=== PATIENT | male | born 1935 | race African-American/Black ===

== ENCOUNTER 2020-02-11 09:52 | Outpatient (REF) | payer MEDICARE, SELFPAY ==
[2020-02-11 12:24] LABS: Alanine Aminotransferase 16 U/L (0-40); Albumin Level 4.3 g/dL (3.5-5.0); Alkaline Phosphatase 74 U/L (39-117); Anion Gap 13 (12-20); Aspartate Amino Transferase 32 U/L (5-37); Bilirubin Total 0.7 mg/dL (0.0-1.0); Blood Urea Nitrogen 10 mg/dL (9-16); Carbon Dioxide 29 mmol/L (22-29); Chloride 101 mmol/L (96-108); Cholesterol 160 mg/dL; Estimated Glomerular Filt Rate > 60; Glucose Fasting 87 mg/dL (60-99); HDL Cholesterol 65 mg/dL; LDL Cholesterol Calculated 78 mg/dl; Potassium 3.9 mmol/l (3.3-5.1); Sodium 139 mmol/L (135-145); Total Protein 7.5 g/dL (6.5-8.0); Triglycerides 86 mg/dL
[2020-02-11 12:49] LABS: PSA,Total (Free>4and<10) 0.26 ng/mL (0.00-4.00); TSH reflex Free T4 1.98 mIU/mL (0.32-4.0); Vitamin D 25-OH Total 40.7 ng/mL (>30)
[2020-02-11 12:51] LABS: Creatinine Urine 22.84 mg/dL; Microalbumin Urine < 5.0 mg/L
== END 2020-02-11 09:53 | disposition home or self-care (01) ==
LOC: HO.WFDLDS 09:52
PROVIDERS: Visit Provider Family Medicine
DX: Z12.5 Encounter for screening for malignant neoplasm of prostate (principal); R03.0 Elevated blood-pressure reading, without diagnosis of hypertension; Z00.00 Encounter for general adult medical examination without abnormal findings; E55.9 Vitamin D deficiency, unspecified
CPT/HCPCS: 80053; 80061; 82043; 82306; 84153; 84443

== ENCOUNTER 2020-04-07 12:06 | Outpatient (REF) | payer MEDICARE, SELFPAY ==
--- NOTE | 2020-04-07 12:14 | XR_ITS ---
EXAMINATION: XR ANKLE, LEFT CLINICAL INFORMATION: Left ankle pain. COMPARISON: None TECHNIQUE: AP, lateral, and mortise views of the left ankle. FINDINGS: There is no evidence of acute fracture or dislocation of the left ankle. Ankle mortise intact. There is some calcification of the intraosseous membrane likely related to previous heel trauma. There is noted to be a compression fracture of the navicular with spurring dorsum of the navicular and 1st cuneiform. There is some sclerosis involving the navicular and this is likely a chronic injury. XR/XR ankle LT 2V IMPRESSION: No significant abnormality of the left ankle. Probable old compression fracture of the navicula.
== END 2020-04-07 12:07 | disposition home or self-care (01) ==
LOC: HO.XRAY 12:06
PROVIDERS: PCP Family Medicine; Visit Provider Hospitalist
DX: M25.572 Pain in left ankle and joints of left foot (principal)
CPT/HCPCS: 73600

== ENCOUNTER 2020-09-28 12:45 | Outpatient (REF) | payer MEDICARE, SELFPAY ==
[2020-09-28 13:23] LABS: MANUAL DIFF FLAG NO
[2020-09-28 13:27] LABS: Basophils Percent Auto 0.8 % (0-2); Eosinophils Absolute Auto 0.1 X10*3/uL (0.0-0.4); Eosinophils Percent Auto 2.9 % (0-4); Hematocrit 40.3 % (42-52); Hemoglobin 12.9 g/dl (14.0-18.0); Imm Gran Abs Auto 0.01 X10*3/uL (0.00-0.03); Imm Gran Pct Auto 0.2 % (0.0-0.4); Lymphocytes Absolute Auto 2.6 X10*3/uL (1.2-4.9); Mean Corpuscular Hemoglobin 27.1 pg (27.0-33.0); Mean Corpuscular Volume 84.7 fL (80-98); Mean Platelet Volume 9.2 fL (9.4-12.4); Monocytes Absolute Auto 0.7 X10*3/uL (0.1-1.2); Monocytes Percent Auto 13.6 % (2-11); Neutrophils Absolute Auto 1.4 X10*3/uL (2.0-8.3); Neutrophils Percent Auto 28.5 % (45-73); Platelet Count 218 X10*3/uL (160-400); Red Blood Count 4.76 X10*6/uL (4.60-5.80); Red Cell Distribution Width 13.3 % (11.0-16.0); White Blood Count 4.9 X10*3/uL (4.8-10.8)
[2020-09-28 13:57] LABS: Alanine Aminotransferase 11 U/L (0-40); Albumin Level 4.3 g/dL (3.5-5.0); Alkaline Phosphatase 76 U/L (39-117); Anion Gap 13 (12-20); Aspartate Amino Transferase 24 U/L (5-37); Bilirubin Total 0.3 mg/dL (0.0-1.0); Blood Urea Nitrogen 18 mg/dL (9-16); Calcium 9.5 mg/dL (8.4-10.2); Carbon Dioxide 30 mmol/L (22-29); Chloride 102 mmol/L (96-108); Estimated Glomerular Filt Rate > 60; Glucose Random 95 mg/dL (60-115); Potassium 4.2 mmol/L (3.3-5.1); Rheumatoid Factor 136.7 IU/mL (<15.0); Sodium 141 mmol/L (135-145); Total Protein 7.9 g/dL (6.5-8.0)
[2020-09-28 14:10] LABS: Erythrocyte Sedimentation Rate 19 MM/HR (0-15)
[2020-09-29 22:37] LABS: CRP High Sensitivity 6.6 mg/L
[2020-10-04 12:42] LABS: Cyclic Citrullinated Peptide <16 UNITS
== END 2020-09-28 12:46 | disposition home or self-care (01) ==
LOC: HO.WFDLDS 12:45
PROVIDERS: Visit Provider Family Medicine
DX: Z00.00 Encounter for general adult medical examination without abnormal findings (principal); M79.643 Pain in unspecified hand
CPT/HCPCS: 36415; 80053; 85025; 85652; 86141; 86200; 86431

== ENCOUNTER 2020-10-04 13:54 | Outpatient (REF) | payer MEDICARE, SELFPAY ==
--- NOTE | ~2020-10-04 | XR_ITS ---
EXAMINATION: XR FOOT, RIGHT XR FOOT, LEFT CLINICAL INFORMATION: Abnormal immunologic findings. COMPARISON: Left ankle radiographs dated 04/07/2020. TECHNIQUE: AP, oblique, and lateral views of the right and left foot. FINDINGS: RIGHT FOOT: No acute fracture or dislocation. Mild degenerative spurring at the dorsal cuneonavicular joints. Mild joint space narrowing with small marginal osteophytes at the 1st metatarsophalangeal joint. No osseous erosion. No abnormal soft tissue calcification. LEFT FOOT: Joint space narrowing with bony remodeling and degenerative spurring at the dorsal cuneonavicular joints. Findings are similar when compared to the prior radiographs. Joint space narrowing or marginal osteophytes at the 1st metatarsophalangeal joint. No fracture or dislocation. No abnormal soft tissue calcification. XR/XR foot RT 2V IMPRESSION: Right foot: Mild osteoarthritis at the dorsal cuneonavicular joints. Mild osteoarthritis at the 1st metatarsophalangeal joint. Left foot: Severe osteoarthritis at the dorsal cuneonavicular joints, similar when compared to the prior ankle radiographs. Mild 1st metatarsophalangeal joint osteoarthritis.
--- NOTE | ~2020-10-04 | XR_ITS ---
EXAMINATION: XR HAND/WRIST, RIGHT XR HAND/WRIST, LEFT CLINICAL INFORMATION: Abnormal immunologic findings. COMPARISON: None TECHNIQUE: AP, oblique, and lateral views of the right hand and wrist as well as the left hand and wrist. FINDINGS: RIGHT HAND AND WRIST: No acute fracture or dislocation. Joint space narrowing with marginal osteophytes at the triscaphe and 1st carpometacarpal joints. Normal carpal alignment. No osseous erosion. No abnormal soft tissue calcification. LEFT HAND AND WRIST: No acute fracture or dislocation. Normal carpal alignment. Mild joint space narrowing at the radiocarpal joint. No osseous erosion. No abnormal soft tissue calcification. XR/XR hand wrist LT IMPRESSION: Right hand and wrist: Mild degenerative arthritis at the triscaphe and 1st carpometacarpal joints. Left hand and wrist: Mild degenerative arthritis at the radiocarpal joint.
--- NOTE | ~2020-10-04 | XR_ITS ---
EXAMINATION: XR HAND/WRIST, RIGHT XR HAND/WRIST, LEFT CLINICAL INFORMATION: Abnormal immunologic findings. COMPARISON: None TECHNIQUE: AP, oblique, and lateral views of the right hand and wrist as well as the left hand and wrist. FINDINGS: RIGHT HAND AND WRIST: No acute fracture or dislocation. Joint space narrowing with marginal osteophytes at the triscaphe and 1st carpometacarpal joints. Normal carpal alignment. No osseous erosion. No abnormal soft tissue calcification. LEFT HAND AND WRIST: No acute fracture or dislocation. Normal carpal alignment. Mild joint space narrowing at the radiocarpal joint. No osseous erosion. No abnormal soft tissue calcification. XR/XR hand wrist RT IMPRESSION: Right hand and wrist: Mild degenerative arthritis at the triscaphe and 1st carpometacarpal joints. Left hand and wrist: Mild degenerative arthritis at the radiocarpal joint.
--- NOTE | ~2020-10-04 | XR_ITS ---
EXAMINATION: XR FOOT, RIGHT XR FOOT, LEFT CLINICAL INFORMATION: Abnormal immunologic findings. COMPARISON: Left ankle radiographs dated 04/07/2020. TECHNIQUE: AP, oblique, and lateral views of the right and left foot. FINDINGS: RIGHT FOOT: No acute fracture or dislocation. Mild degenerative spurring at the dorsal cuneonavicular joints. Mild joint space narrowing with small marginal osteophytes at the 1st metatarsophalangeal joint. No osseous erosion. No abnormal soft tissue calcification. LEFT FOOT: Joint space narrowing with bony remodeling and degenerative spurring at the dorsal cuneonavicular joints. Findings are similar when compared to the prior radiographs. Joint space narrowing or marginal osteophytes at the 1st metatarsophalangeal joint. No fracture or dislocation. No abnormal soft tissue calcification. XR/XR foot LT 2V IMPRESSION: Right foot: Mild osteoarthritis at the dorsal cuneonavicular joints. Mild osteoarthritis at the 1st metatarsophalangeal joint. Left foot: Severe osteoarthritis at the dorsal cuneonavicular joints, similar when compared to the prior ankle radiographs. Mild 1st metatarsophalangeal joint osteoarthritis.
--- NOTE | ~2020-10-04 | XR_ITS ---
EXAMINATION: XR CHEST CLINICAL INFORMATION: Abnormal immunological findings. COMPARISON: None TECHNIQUE: 2 views of the chest were obtained. FINDINGS: The lungs are well-expanded and clear acute process. Heart size and pulmonary vascularity is normal. No gross bony abnormality seen. XR/XR chest 2V IMPRESSION: Unremarkable chest exam.
[2020-10-05 04:49] LABS: HBsAGNum1 0.13 S/CO (0.00-0.99); Hepatitis B Surface Antigen Negative (Negative); ~Hepatitis C Antibody Nonreactive (Nonreactive)
[2020-10-05 05:31] LABS: HBS Num1 > 1000.00 mIU/mL (0-7.99); Hepatitis A Antibody IgM 0.56 Index (0-0.79); ~Hepatitis A Antibody IgM Nonreactive (Nonreactive); ~Hepatitis B Surface Antibody REACTIVE (Nonreactive)
[2020-10-05 06:18] LABS: HBc Num1 3.18 S/CO (0.00-0.79); HBc Num2 3.32 S/CO; HBc Num3 3.18 S/CO; Hepatitis B Core Antibody Reactive (Nonreactive)
[2020-10-07 23:56] LABS: TS Negative Control Passed; TS Panel A 1; TS Panel B 0; TS Positive Control Passed; TSpotTB Negative (SeeBelow)
== END 2020-10-04 13:55 | disposition home or self-care (01) ==
LOC: HO.LAB 13:54
PROVIDERS: PCP Family Medicine; Visit Provider Student in an Organized Health Care Education/Training Program
DX: R76.8 Other specified abnormal immunological findings in serum (principal)
CPT/HCPCS: 36415; 71046; 73110; 73130; 73620; 86481; 86704; 86706; 86709; 86803; 87340; 99202

== ENCOUNTER → 2020-10-26 10:53 | Outpatient (BNVA) | payer MEDICARE, SELFPAY | PROVIDERS: PCP Family Medicine; Visit Provider Student in an Organized Health Care Education/Training Program | DX: M06.9 Rheumatoid arthritis, unspecified (principal) | CPT/HCPCS: 99212 ==

== ENCOUNTER → 2020-11-23 09:56 | Outpatient (BNVA) | payer MEDICARE, SELFPAY | PROVIDERS: PCP Family Medicine; Visit Provider Student in an Organized Health Care Education/Training Program | CPT/HCPCS: Q3014 ==

== ENCOUNTER → 2021-07-24 13:43 | Outpatient (BNVA) | payer MEDICARE, SELFPAY | PROVIDERS: PCP Family Medicine; Visit Provider Internal Medicine Rheumatology | DX: M05.9 Rheumatoid arthritis with rheumatoid factor, unspecified (principal); M65.9 Synovitis and tenosynovitis, unspecified; M19.041 Primary osteoarthritis, right hand; M19.042 Primary osteoarthritis, left hand; Z79.1 Long term (current) use of non-steroidal anti-inflammatories (NSAID); Z79.899 Other long term (current) drug therapy | CPT/HCPCS: 99212 ==

== ENCOUNTER 2021-09-22 10:21 | Outpatient (REF) | payer MEDICARE, SELFPAY ==
--- NOTE | ~2021-09-22 | XR_ITS ---
EXAMINATION: XR ABDOMEN KUB CLINICAL INDICATION: R10.9 - Unspecified abdominal pain COMPARISON: None TECHNIQUE: AP x2 views of the abdomen. FINDINGS: There is moderate stool in the colon. No gaseous dilatation of bowel or abnormal collections of gas. Lung bases are clear. There are no visible urinary tract calculi. There are multilevel degenerative changes lumbar spine. XR/XR KUB IMPRESSION: -Moderate stool in colon. No obstruction. No gaseous dilatation of bowel. -Lung bases clear. -No visible urinary tract calculi.
[2021-09-22 11:37] LABS: Hematocrit 36.9 % (42.0-52.0); Mean Corpuscular HGB Conc 32.5 g/dl (31.0-36.0); Mean Corpuscular Hemoglobin 27.1 pg (27.0-33.0); Mean Corpuscular Volume 83.3 fL (80.0-98.0); Mean Platelet Volume 9.6 fL (9.4-12.4); Platelet Count 223 X10*3/uL (160-400); Red Blood Count 4.43 X10*6/uL (4.60-5.80); Red Cell Distribution Width 13.4 % (11.0-16.0); White Blood Count 6.3 X10*3/uL (4.8-10.8)
[2021-09-22 11:59] LABS: Alanine Aminotransferase 13 U/L (0-40); Albumin Level 4.1 g/dL (3.5-5.0); Alkaline Phosphatase 78 U/L (39-117); Anion Gap 12 (12-20); Aspartate Amino Transferase 29 U/L (5-37); Bilirubin Direct 0.2 mg/dL (0.0-0.5); Bilirubin Total 0.5 mg/dL (0.0-1.0); Blood Urea Nitrogen 18 mg/dL (9-16); Calcium 9.4 mg/dL (8.4-10.2); Carbon Dioxide 28 mmol/L (22-29); Chloride 104 mmol/L (96-108); Cholesterol 125 mg/dL; Estimated Glomerular Filt Rate > 60; Glucose Random 99 mg/dL (60-115); HDL Cholesterol 51 mg/dL; LDL Cholesterol Calculated 58 mg/dl; Potassium 3.9 mmol/L (3.3-5.1); Sodium 140 mmol/L (135-145); Total Protein 7.5 g/dL (6.5-8.0); Triglycerides 84 mg/dL
[2021-09-22 12:24] LABS: Erythrocyte Sedimentation Rate 27 MM/HR (0-15)
== END 2021-09-22 10:22 | disposition home or self-care (01) ==
LOC: HO.XRAY 10:21
PROVIDERS: PCP Family Medicine; Visit Provider Internal Medicine
DX: R10.9 Unspecified abdominal pain (principal)
CPT/HCPCS: 36415; 74018; 80048; 80061; 80076; 85027; 85652

== ENCOUNTER 2022-06-30 09:16 | Outpatient (REF) | payer MEDICARE, SELFPAY ==
[2022-06-30 11:01] LABS: MANUAL DIFF FLAG NO
[2022-06-30 11:05] LABS: Basophils Percent Auto 0.7 % (0-2); Eosinophils Absolute Auto 0.1 X10*3/uL (0.0-0.4); Hematocrit 37.8 % (42.0-52.0); Hemoglobin 12.2 g/dl (14.0-18.0); Imm Gran Abs Auto 0.01 X10*3/uL (0.00-0.03); Imm Gran Pct Auto 0.2 % (0.0-0.4); Lymphocytes Percent Auto 36.1 % (20-40); Mean Corpuscular HGB Conc 32.3 g/dl (31.0-36.0); Mean Corpuscular Hemoglobin 27.5 pg (27.0-33.0); Mean Corpuscular Volume 85.1 fL (80.0-98.0); Mean Platelet Volume 9.5 fL (9.4-12.4); Monocytes Absolute Auto 0.8 X10*3/uL (0.1-1.2); Monocytes Percent Auto 13.8 % (2-11); Neutrophils Absolute Auto 2.6 x10*3/uL (2.0-8.3); Neutrophils Percent Auto 47.2 % (45-73); Platelet Count 229 X10*3/uL (160-400); Red Blood Count 4.44 X10*6/uL (4.60-5.80); Red Cell Distribution Width 13.8 % (11.0-16.0); White Blood Count 5.6 X10*3/uL (4.8-10.8)
[2022-06-30 11:09] LABS: Appearance Urine Clear; Color Urine Yellow; Glucose Urine UA Negative (Negative); Leukocyte Esterase Urine Negative (Negative); Nitrite Urine Negative (Negative); Specific Gravity - Urine 1.025 (1.005-1.025); Urine Blood Negative (Negative); Urine Ketones Negative (Negative); Urine Protein Negative (Neg-Trace)
[2022-06-30 12:23] LABS: Creatinine Urine 216.35 mg/dL
[2022-06-30 12:38] LABS: Alanine Aminotransferase 20 U/L (0-40); Albumin Level 4.3 g/dL (3.5-5.0); Alkaline Phosphatase 73 U/L (39-117); Anion Gap 11 (12-20); Aspartate Amino Transferase 71 U/L (5-37); Bilirubin Total 0.6 mg/dL (0.0-1.0); Blood Urea Nitrogen 14 mg/dL (9-16); Calcium 9.4 mg/dL (8.4-10.2); Carbon Dioxide 28 mmol/L (22-29); Chloride 107 mmol/L (96-108); Cholesterol 127 mg/dL; Estimated Glomerular Filt Rate > 60; Glucose Fasting 128 mg/dL (60-99); HDL Cholesterol 64 mg/dL; LDL Cholesterol Calculated 58 mg/dl; Potassium 4.2 mmol/L (3.3-5.1); Sodium 142 mmol/L (135-145); Total Protein 7.4 g/dL (6.5-8.0); Triglycerides 28 mg/dL
[2022-06-30 12:44] LABS: Prostate Specific Antigen Scr 0.33 ng/mL (<0.05-4.0)
== END 2022-06-30 09:17 | disposition home or self-care (01) ==
LOC: HO.HMGCLDS 09:16
PROVIDERS: PCP Family Medicine; Visit Provider Family Medicine
DX: Z00.00 Encounter for general adult medical examination without abnormal findings (principal); Z12.5 Encounter for screening for malignant neoplasm of prostate; I10 Essential (primary) hypertension; R29.898 Other symptoms and signs involving the musculoskeletal system
CPT/HCPCS: 36415; 80053; 80061; 81003; 82043; 84153; 84443; 85025

== ENCOUNTER 2022-07-02 12:18 | Outpatient (REF) | payer MEDICARE, SELFPAY ==
[2022-07-02 14:01] LABS: Immature Retic Fraction 9.5 % (2.3-13.4); Retic HGB Equivalent 32.3 pg (30.0-35.0); Reticulocyte Percent 1.4 % (0.5-1.8); Reticulocytes Absolute 0.065 X10*6/uL (0.026-0.095)
[2022-07-02 14:14] LABS: Iron 53 mcg/dL (45-160); Percent Iron Saturation 19 % (15-50); Total Iron Binding Capacity 276 mcg/dL (228-428); Unsaturated Iron Binding 223 ug/dL
[2022-07-02 14:19] LABS: Estimated Average Glucose 120 mg/dL; Hemoglobin A1c % 5.8 %
[2022-07-02 14:53] LABS: Vitamin B12 > 2000 pg/mL (200-900)
== END 2022-07-02 12:19 | disposition home or self-care (01) ==
LOC: HO.WFDLDS 12:18
PROVIDERS: Visit Provider Nurse Practitioner Family
DX: R41.0 Disorientation, unspecified (principal); D64.9 Anemia, unspecified; R73.01 Impaired fasting glucose
CPT/HCPCS: 36415; 82607; 82746; 83036; 83540; 85045

== ENCOUNTER 2022-07-10 12:02 | Outpatient (REF) | payer MEDICARE, SELFPAY | END 2022-07-10 12:03 | disposition home or self-care (01) | LOC: HO.LAB 12:02 | PROVIDERS: Visit Provider Family Medicine | DX: Z13.89 Encounter for screening for other disorder (principal) ==

== ENCOUNTER 2022-07-10 12:04 | Outpatient (REF) | payer MEDICARE, SELFPAY ==
[2022-07-10 14:06] LABS: MANUAL DIFF FLAG NO
[2022-07-10 14:11] LABS: Basophils Absolute Auto 0.1 X10*3/uL (0.0-0.2); Basophils Percent Auto 0.9 % (0-2); Eosinophils Absolute Auto 0.1 X10*3/uL (0.0-0.4); Eosinophils Percent Auto 1.7 % (0-4); Hematocrit 38.9 % (42.0-52.0); Hemoglobin 12.6 g/dl (14.0-18.0); Imm Gran Abs Auto 0.02 X10*3/uL (0.00-0.03); Imm Gran Pct Auto 0.3 % (0.0-0.4); Lymphocytes Absolute Auto 1.9 X10*3/uL (1.2-4.9); Lymphocytes Percent Auto 29.1 % (20-40); Mean Corpuscular HGB Conc 32.4 g/dl (31.0-36.0); Mean Corpuscular Hemoglobin 27.5 pg (27.0-33.0); Mean Corpuscular Volume 84.9 fL (80.0-98.0); Mean Platelet Volume 9.5 fL (9.4-12.4); Monocytes Absolute Auto 1.2 X10*3/uL (0.1-1.2); Monocytes Percent Auto 17.6 % (2-11); Neutrophils Absolute Auto 3.4 x10*3/uL (2.0-8.3); Neutrophils Percent Auto 50.4 % (45-73); Platelet Count 264 X10*3/uL (160-400); Red Blood Count 4.58 X10*6/uL (4.60-5.80); Red Cell Distribution Width 13.4 % (11.0-16.0); White Blood Count 6.7 X10*3/uL (4.8-10.8)
[2022-07-10 14:42] LABS: Appearance Urine Clear; Color Urine Yellow; Glucose Urine UA Negative (Negative); Leukocyte Esterase Urine Negative (Negative); Nitrite Urine Negative (Negative); Specific Gravity - Urine 1.025 (1.005-1.025); UMIC TRIGGER UA YES; Urine Blood Negative (Negative); Urine Ketones Negative (Negative); Urine Protein 30 (1+) mg/dL (Neg-Trace)
[2022-07-10 14:53] LABS: Bacteria Urine None Seen (None Seen); Granular Casts Urine Present; RBC Urine 0-2 /HPF (0-2); WBC Urine 0-5 /HPF (0-5)
[2022-07-10 15:01] LABS: Alanine Aminotransferase 56 U/L (0-40); Albumin Level 4.5 g/dL (3.5-5.0); Alkaline Phosphatase 75 U/L (39-117); Anion Gap 14 (12-20); Aspartate Amino Transferase 85 U/L (5-37); Bilirubin Total 0.6 mg/dL (0.0-1.0); Blood Urea Nitrogen 21 mg/dL (9-16); Calcium 9.8 mg/dL (8.4-10.2); Carbon Dioxide 30 mmol/L (22-29); Chloride 100 mmol/L (96-108); Estimated Glomerular Filt Rate > 60; Glucose Random 86 mg/dL (60-115); Sodium 140 mmol/L (135-145); Total Protein 7.9 g/dL (6.5-8.0)
[2022-07-10 15:29] LABS: Folate 16.2 ng/mL (> or = 4.0); TSH reflex Free T4 1.95 uIU/mL (0.32-4.0); Vitamin B12 > 2000 pg/mL (200-900)
[2022-07-11 04:04] LABS: Syphilis Screen Nonreactive (Nonreactive)
== END 2022-07-10 12:05 | disposition home or self-care (01) ==
LOC: HO.WFDLDS 12:04
PROVIDERS: Visit Provider Family Medicine
DX: Z00.00 Encounter for general adult medical examination without abnormal findings (principal); R41.82 Altered mental status, unspecified; E53.8 Deficiency of other specified B group vitamins; Z20.2 Contact with and (suspected) exposure to infections with a predominantly sexual mode of transmission
CPT/HCPCS: 36415; 80053; 81001; 82607; 82746; 84443; 85025; 86780

== ENCOUNTER 2022-09-13 08:14 | Outpatient (REF) | payer MEDICARE, SELFPAY ==
[2022-09-13 12:01] LABS: Alanine Aminotransferase 13 U/L (0-40); Albumin Level 3.9 g/dL (3.5-5.0); Alkaline Phosphatase 71 U/L (39-117); Anion Gap 10 (12-20); Aspartate Amino Transferase 27 U/L (5-37); Bilirubin Total 0.5 mg/dL (0.0-1.0); Blood Urea Nitrogen 17 mg/dL (9-16); Carbon Dioxide 29 mmol/L (22-29); Chloride 106 mmol/L (96-108); Estimated Glomerular Filt Rate > 60; Glucose Random 112 mg/dL (60-115); Sodium 141 mmol/L (135-145); Total Protein 7.9 g/dL (6.5-8.0)
[2022-09-13 12:13] LABS: B Type Natriuretic Peptide 46 pg/mL (<100)
== END 2022-09-13 08:15 | disposition home or self-care (01) ==
LOC: HO.HMGCLDS 08:14
PROVIDERS: PCP Family Medicine; Visit Provider Family Medicine
DX: R60.9 Edema, unspecified (principal); I50.9 Heart failure, unspecified
CPT/HCPCS: 36415; 80053; 83880

== ENCOUNTER 2022-12-26 13:08 | Outpatient (AMB) | payer MEDICARE, SELFPAY ==
--- NOTE | 2022-12-26 13:17 | A.OFFPC_ITS ---
Vital Signs 12/26/22 13:18 Height 5 ft 8 in Weight 147 lb BMI 22.3 BP 122/72 Blood Pressure Location Lt brachial Position Sitting Pulse 62 Pulse Oximetry (%) 99 Oxygen Delivery Method Room Air Intake Visit Reasons: f/u poor circulation Intake Note: Patient is here for poor circulation today. There is also increase in dementia, and left ankle pain. Patient would like refill on the Trazadone. Patient's daghter is worried about him not wanting to walk outside anymore. Store Stock Associate: Present Allergies house dust Allergy (Verified 12/26/22 13:19) sneezing Tobacco use date assessed: 09/13/22 Fall risk assessment: No Falls in past year Last assessed Fall Risk: 12/26/22 Dental Screening Dental Screen Date: 12/26/22 Did you have a dental visit in the last 12 months?: No Did you have a dental problem in the last 6 months where you did not have access to dental care?: No Was dental information given to patient?: Patient has dentist HPI f/u poor circulation HPI Details 87 y/o male presents today to f/u poor c irculation. They report dementia has worsened. They also report L ankle pain. Had seen Dr. Mcleod 10/22/22 for peripheral neuropathy/pain and metarasalgia bilaterally. They had recommended increase in gabapentin to 300mg t.i.d. Pt's daughter reports she had been worried about his weight loss - has lost about 20 lbs since office visit in June. 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) Osteoarthritis of hands, bilateral Flexor tenosynovitis of finger Peroneal tendinitis Seasonal allergies High cholesterol High blood pressure Surgical History No pertinent past surgical history Social History Housing: House Alcohol intake: never Patient Tobacco Use Status: Former Tobacco user e-Cigarette/Vaping Use: Never Used Second Hand Smoke Exposure: No service: No Current occupational status: retired Current occupational exposures/hazards: No Cognitive needs: No Hearing needs: No Vision needs: No Questionnaire Thrive Questionnaire Date Thrive assessed: 11/18/20 SIDNEY-7 AMB Questionnaire SIDNEY-7 Date SIDNEY - 7 assessed: 10/04/21 Source: Developed by Drs. Chris Castañeda, Shamika Alexandra, Kar Tavarez and colleagues, with an educational cesar from [employer]. Review of Systems Const Denies chills, Denies fatigue, Denies fever(s), Denies headache(s) and Denies weakness ENT Denies dizziness and Denies headache(s) Card Denies chest pain, Denies lightheadedness, Denies dyspnea and Denies other (Palpitations) Resp Denies cough, Denies dyspnea, Denies wheezing and Denies other ( shortness of breath) Musc Denies numbness and Denies tingling Neuro Denies dizziness, Denies headache(s), Denies numbness, Denies tingling, Denies paresthesias and Denies weakness Psych Denies anxiety and Denies depression Endo Denies fatigue Aller/Immun Denies wheezing Physical exam (Primary Care) Vital Signs: Last Vital Signs Pulse 62 12/26/22 13:18 BP 122/72 12/26/22 13:18 Pulse Ox 99 12/26/22 13:18 Oxygen Delivery Method Room Air 12/26/22 13:18 BMI result Body Mass Index 22.3 Tobacco/Smoking Status: Tobacco use Status Tobacco use date assessed 09/13/22 12/26/22 13:29 Patient Tobacco Use Status Former Tobacco user 12/26/22 13:29 e-Cigarette/Vaping Use Never Used 12/26/22 13:29 Thrive Assessment: Date of Thrive Assessment Date Thrive assessed 11/18/20 12/26/22 13:29 Const General: no acute distress and well developed Nutritional Appearance: well nourished Orientation/consciousness: patient oriented x3 HENMT Head: Yes normocephalic and Yes atraumatic Eyes General: appearance normal, both eyes and all related structures Pupils: Equal, round and reactive pupils present EOM: EOMs intact bilaterally Resp Effort & Inspection: normal respiratory effort Auscultation: clear to auscultation bilaterally Cardio Rate: regular rate Rhythm: regular rhythm Heart sounds: S1 normal heart sound present, S2 normal heart sound present, no gallops, no murmurs and no rubs Neuro General: patient oriented x3 and No gait normal Cranial nerves: Yes Equal, round and reactive pupils present Gait exam (Neuro): Assisted gait required (Cane) Psych Affect: normal affect Assessment and Plan Assessment & Plan (1) Left ankle pain: Code(s): M25.572 - Pain in left ankle and joints of left foot Plan: Processes Chemical Design Engineer?had?recommended?increasing?gabapentin?to?300?mg?t.i.d.. Patient?has?some?issues?with?dementia?and?confusion.??Will?increase?at?a?slower? rate Increase?from?300?mg?q.h.s.?to?400?mg?q.h.s.. Subsequently?we?can?increase?to?600?mg?q.h.s.?and?then?b.i.d.?if?needed. (2) Dementia: Code(s): F03.90 - Unspecified dementia, unspecified severity, without behavioral disturbance, psychotic disturbance, mood disturbance, and anxiety Plan: Noted?slow/gradual?decline Daughter?will?continue?to?reorient?patient (3) Pain and swelling of lower extremity: Code(s): M79.606 - Pain in leg, unspecified; M79.89 - Other specified soft tissue disorders Plan: No?significant?edema?or?swelling?today. Will?continue?to?monitor (4) Weight loss: Code(s): R63.4 - Abnormal weight loss Plan: Patient?has?had?some?unintentional?weight?loss Giving?him?ensure Will?follow-up?on?his?weight?in?a?month (5) Peripheral neuropathy: Code(s): G62.9 - Polyneuropathy, unspecified Plan: As?above,?increasing?gabapentin (6) Lower extremity weakness: Code(s): R29.898 - Other symptoms and signs involving the musculoskeletal system Plan: He?has?some?lower?extremity?weakness?with?mildly?unsteady?gait. Continue?exercises?learned?at?physical?therapy?and?advised?he?use?a?cane. (7) Unsteady gait: Code(s): R26.81 - Unsteadiness on feet Plan: As?above.??Use?cane Medications: New food supplemt, lactose-reduced (Ensure oral liquid) 1 ea PO DAILY 30 days 7,110 mL 2RF lidocaine 4% 1 appl topical BID 30 days 60 grams 2RF Changed From gabapentin 300 mg PO BEDTIME 90 days 90 caps 1RF To gabapentin 400 mg PO BEDTIME 30 days 30 caps 0RF Refilled trazodone 25 mg (1/2 x 50 mg) PO BEDTIME 30 days PRN 30 tabs 0RF sleep Coding Level of Care Code Est Pt Level 4 (99035) Diagnoses Left ankle pain M25.572 Dementia F03.90 Pain and swelling of lower extremity M79.606; M79.89 Weight loss R63.4 Peripheral neuropathy G62.9 Lower extremity weakness R29.898 Unsteady gait R26.81
[2022-12-26 13:18] VITALS: BP 122/72; PULSE 62; O2SAT 99; BMI 22.3
== END 2022-12-26 14:03 | disposition home or self-care (01) ==
PROVIDERS: PCP Family Medicine; Visit Provider Family Medicine
DX: M25.572 Pain in left ankle and joints of left foot (principal); F03.90 Unspecified dementia, unspecified severity, without behavioral disturbance, psychotic disturbance, mood disturbance, and anxiety; M79.606 Pain in leg, unspecified; M79.89 Other specified soft tissue disorders; R63.4 Abnormal weight loss; G62.9 Polyneuropathy, unspecified; R29.898 Other symptoms and signs involving the musculoskeletal system; R26.81 Unsteadiness on feet
CPT/HCPCS: 99214

== ENCOUNTER 2023-01-31 13:39 | Outpatient (AMB) | payer MEDICARE, SELFPAY ==
[2023-01-31 13:51] VITALS: BP 132/74; PULSE 67; O2SAT 99; BMI 20.1
--- NOTE | 2023-01-31 13:51 | A.OFFPC_ITS ---
Vital Signs 01/31/23 13:51 Height 5 ft 8 in Weight 132 lb BMI 20.1 BP 132/74 Blood Pressure Location Lt brachial Position Sitting Pulse 67 Pulse Source Pulse Oximeter Pulse Oximetry (%) 99 Oxygen Delivery Method Room Air Intake Visit Reasons: f/u chronic conditions Intake Note: Patient is here to follow up on chronic conditions. Patient is not eating well, appetite is down, and he does not like the taste of the Ensure. He would like refill on Amlodipine today. He complains of pain in his belly today. Patient is complaining of dry skin on his hands today. Patients daughter concerned about his wandering out at night time in the cold. 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 Allergies house dust Allergy (Verified 01/31/23 13:53) sneezing Tobacco use date assessed: 01/31/23 HPI f/u chronic conditions HPI Details 88 y/o male presents to f/u chronic cox branson itions. Pt has complaints of abdominal pain. They report decreased appetite and states he does not like the taste of Ensure. They deny any diarrhea/constipation. They note he also has some paranoia and is afraid people are going to poison his food. They report patient's increased confusion. They are requesting more services for him. 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) Osteoarthritis of hands, bilateral Flexor tenosynovitis of finger Peroneal tendinitis Seasonal allergies High cholesterol High blood pressure Surgical History No pertinent past surgical history Social History Housing: House Alcohol intake: never Patient Tobacco Use Status: Former Tobacco user e-Cigarette/Vaping Use: Never Used Second Hand Smoke Exposure: No service: No Current occupational status: retired Current occupational exposures/hazards: No Cognitive needs: No Hearing needs: No Vision needs: No Questionnaire Thrive Questionnaire Date Thrive assessed: 11/18/20 SIDNEY-7 AMB Questionnaire SIDNEY-7 Date SIDNEY - 7 assessed: 10/04/21 Source: Developed by Drs. Chris Castañeda, Shamika BKar Robledo and colleagues, with an educational cesar from [employer]. Review of Systems Const Denies chills, Denies fatigue, Denies fever(s), Denies headache(s) and Denies weakness ENT Denies dizziness and Denies headache(s) Card Denies dyspnea Resp Denies cough, Denies dyspnea, Denies wheezing and Denies other (shortness of breath) GI Reports abdominal pain Musc Denies numbness and Denies tingling Neuro Denies dizziness, Denies headache(s), Denies numbness, Denies tingling and Colton es weakness Psych Denies anxiety and Denies depression Endo Denies fatigue Aller/Immun Denies wheezing Physical exam (Primary Care) Vital Signs: Last Vital Signs Pulse 67 01/31/23 13:51 BP 132/74 01/31/23 13:51 Pulse Ox 99 01/31/23 13:51 Oxygen Delivery Method Room Air 01/31/23 13:51 BMI result Body Mass Index 20.1 Tobacco/Smoking Status: Tobacco use Status Tobacco use date assessed 01/31/23 01/31/23 14:00 Patient Tobacco Use Status Former Tobacco user 01/31/23 14:00 e-Cigarette/Vaping Use Never Used 01/31/23 14:00 Thrive Assessment: Date of Thrive Assessment Date Thrive assessed 11/18/20 01/31/23 14:00 Const General: well developed; No acute distress Nutritional Appearance: well nourished Orientation/consciousness: patient oriented x3 HENMT Head: Yes normocephalic and Yes atraumatic Eyes General: appearance normal, both eyes and all related structures Pupils: Equal, round and reactive pupils present EOM: EOMs intact bilaterally Resp Effort & Inspection: normal respiratory effort GI Other: Active bowel sounds Neuro General: patient oriented x3 and gait normal Cranial nerves: Yes Equal, round and reactive pupils present Psych Affect: normal affect Assessment and Plan Assessment & Plan (1) Abdominal pain: Code(s): R10.9 - Unspecified abdominal pain Plan: Patient?has?complaints?of?abdominal?pain,?lack?of?appetite?and?weight?loss. Belly?is?tender?to?palpation?without?rebound?and?has?sig nificantly?active?bowel?sounds Will?send?patient?for?CT?scan Also?referred?to?Gastroenterology (2) Dementia: Code(s): F03.90 - Unspecified dementia, unspecified severity, without behavioral disturbance, psychotic disturbance, mood disturbance, and anxiety Plan: Family?members?are?concerned?regarding?elopement? Needs?around?the?clock?care/supervision (3) Weight loss: Code(s): R63.4 - Abnormal weight loss Plan: Significant?weight?loss As?above,?patient?has?abdominal?discomfort?and?tenderness. Checking?CT?and?I?have?referred?him?to?GI (4) Abnormal urine: Code(s): R82.90 - Unspecified abnormal findings in urine Plan: Check?urinalysis?and?culture Orders: Orders UA and rflx microscopic Today R82.90 - Unspecified abnormal findings in urine Urine Culture Today R63.4 - Abnormal weight loss, R82.90 - Unspecified abnormal findings in urine CT abdomen wo IV con Today R10.9 - Unspecified abdominal pain, R63.4 - Abnormal weight loss CT chest wo IV con Today R10.9 - Unspecified abdominal pain, R63.4 - Abnormal weight loss [facility]errals [facility] Referral F03.90 - Unspecified dementia, unspecified severity, without behavioral disturbance, psychotic disturbance, mood disturbance, and anxiety, R41.0 - Disorientation, unspecified Gastroenterology Referral R10.9 - Unspecified abdominal pain, R63.4 - Abnormal weight loss Medications: Refilled gabapentin 400 mg PO BEDTIME 30 caps 0RF 30 days Coding Level of Care Code Est Pt Level 4 (00834) Diagnoses Abdominal pain R10.9 Dementia F03.90 Weight loss R63.4 Abnormal urine R82.90
== END 2023-01-31 14:38 | disposition home or self-care (01) ==
PROVIDERS: PCP Family Medicine; Visit Provider Family Medicine
DX: R10.9 Unspecified abdominal pain (principal); F03.90 Unspecified dementia, unspecified severity, without behavioral disturbance, psychotic disturbance, mood disturbance, and anxiety; R63.4 Abnormal weight loss; R82.90 Unspecified abnormal findings in urine
CPT/HCPCS: 99214

== ENCOUNTER 2023-01-31 14:28 | Outpatient (REF) | payer MEDICARE, SELFPAY ==
[2023-02-01 11:29] LABS: Appearance Urine Turbid; Color Urine Yellow; Glucose Urine UA Negative (Negative); Leukocyte Esterase Urine Negative (Negative); Nitrite Urine Negative (Negative); PH 5.5 (5.0-9.0); Specific Gravity - Urine 1.025 (1.005-1.025); Urine Blood Negative (Negative); Urine Ketones Trace mg/dL (Negative); Urine Protein Trace mg/dL (Neg-Trace)
== END 2023-01-31 14:29 | disposition home or self-care (01) ==
LOC: HO.LAB 14:28
PROVIDERS: Visit Provider Family Medicine
DX: R82.90 Unspecified abnormal findings in urine (principal); R63.4 Abnormal weight loss; R10.9 Unspecified abdominal pain
CPT/HCPCS: 81003; 87086